=== PATIENT | male | born 1940 | race Caucasian/White ===

== ENCOUNTER → 2017-03-18 | Outpatient (CLI) | payer OTHER | LOC: FIMAGING 11:03 | PROVIDERS: ATTEND Internal Medicine Critical Care Medicine | DX: J44.9 Chronic obstructive pulmonary disease, unspecified (principal); I51.7 Cardiomegaly; J42 Unspecified chronic bronchitis; I70.0 Atherosclerosis of aorta ==

== ENCOUNTER → 2017-03-24 | Outpatient (CLI) | payer OTHER | LOC: BHFA 09:30 | PROVIDERS: ATTEND Internal Medicine | DX: R07.9 Chest pain, unspecified (principal); I25.10 Atherosclerotic heart disease of native coronary artery without angina pectoris | CPT/HCPCS: 78452; 93017; 93306; 93880; A9500; J2785 ==

== ENCOUNTER 2017-03-27 07:26 | Day surgery (SDC) | payer OTHER ==
[2017-03-27] MEDS ORDERED: NS 1,000 ML IV ONE (07:28)
[2017-03-27] MEDS ORDERED: FAMOTIDINE 20 MG TAB PO ONE (07:28)
[2017-03-27] MEDS ORDERED: ASPIRIN EC 325 MG TAB PO ONE (07:28)
[2017-03-27] MEDS ORDERED: DIAZEPAM 5 MG TAB PO ONE (07:28)
--- NOTE | 2017-03-27 07:55 | CPEKG ---
Heart Rate: 51 RR Interval: 1176 P-R Interval: 184 QRSD Interval: 88 QT Interval: 444 QTC Interval: 409 P Prim: 18 QRS Prim: 72 T Wave Prim: 51 EKG Severity - ABNORMAL ECG - EKG Impression: SINUS RHYTHM EKG Impression: BORDERLINE INFERIOR Q WAVES Electronically Signed By: Jonathan Partida 30-Mar-2017 10:32:44
[2017-03-27 08:07] LABS: PLATELET COUNT 185 10^3/uL (150-400)
[2017-03-27 08:17] LABS: INR 1.04 (0.83-1.16); PROTIME(PATIENT) 13.8 SEC (12.0-15.0)
[2017-03-27] MEDS ORDERED: LIDOCAINE 1% 300 MG/30 ML SDV ONE (08:28)
[2017-03-27] MEDS ORDERED: MIDAZOLAM 2 MG/2 ML VIAL ONE (08:28)
[2017-03-27] MEDS ORDERED: fentaNYL 100 MCG/2 ML INJ ONE (08:28)
[2017-03-27] MEDS ORDERED: IOPAMIDOL (ISOVUE-370) 150 ML BTL IV ONE ×2 (08:29→09:57)
[2017-03-27] MEDS ORDERED: CLOPIDOGREL BISULFATE 75 MG TAB ONE (09:19)
[2017-03-27] MEDS ORDERED: ATROPINE SULFATE 1 MG/10 ML SYR ONE (09:41)
--- NOTE | 2017-03-27 10:26 | PDHPUP ---
History & Physical Update H&P update statement: This history and physical update is based on an assessment of the patient which was completed after admission or registration (within 24 hours), but prior to the surgery/procedure. H&P update: H&P reviewed & patient examined, no change in patient's condition since H&P completed
[2017-03-27] MEDS ORDERED: ATROPINE SULFATE 1 MG/10 ML SYR IVP PRN (10:27)
[2017-03-27] MEDS ORDERED: OXYCODONE/APAP 5/325 TAB PO PRN (10:27)
[2017-03-27] MEDS ORDERED: ONDANSETRON 4 MG/2 ML VIAL IVP PRN (10:27)
[2017-03-27] MEDS ORDERED: HYDROCODONE/APAP 5/325 TAB PO PRN (10:27)
[2017-03-27] MEDS ORDERED: NITROGLYCERIN 0.4 MG BTL SL PRN (10:27)
--- NOTE | 2017-03-27 10:27 | PDPROPOC ---
Sedation Plan of Care Sedation Plan of Care: mental status noted, patient educated of risks, benefits , alternatives, patient can tolerate sedation ASA Classification: ASA 2 Planned drugs: fentanyl, midazolam Mallampati Score: Class 2 Mallampati Reference Image: Patient passed 3-3-2 rule?: Yes
[2017-03-27] MEDS ORDERED: IPRATROPIUM BROMIDE 0.5 MG/2.5 ML DEYVIAL IH PRN (10:28)
[2017-03-27] MEDS ORDERED: ALBUTEROL 3 ML DEYVIAL IH PRN (10:28)
[2017-03-27] MEDS ORDERED: TACROLIMUS TP PRN (10:28)
[2017-03-27] MEDS ORDERED: Herbals/Supplements -Info Only PO SCH (10:30)
[2017-03-27] MEDS ORDERED: azaTHIOprine 50 MG TAB PO SCH (12:00)
[2017-03-27] MEDS ORDERED: FUROSEMIDE 40 MG TAB PO SCH (12:00)
[2017-03-27] MEDS ORDERED: GABAPENTIN 400 MG CAP PO SCH (13:00)
[2017-03-27] MEDS ORDERED: BALSALAZIDE DISODIUM 750 MG CAP PO SCH (13:00)
--- NOTE | 2017-03-27 16:42 | CPIP ---
[f rep st] INVASIVE CARDIAC PROCEDURE DATE OF PROCEDURE: 03/27/2017 INDICATIONS FOR PROCEDURE: Positive stress test. PROCEDURE: 1. Nonselective right groin sheathogram. 2. Bilateral selective coronary angiography. 3. Left heart catheterization. 4. Left ventriculogram. 5. Saphenous vein angiography to marginal artery. 6. Saphenous vein angiography to distal right coronary artery. 7. Left internal mammary artery angiography to left anterior descending. HISTORY: Briefly, this is a 76-year-old male with history of prior bypass surgery. The patient had an outpatient stress test which showed inferior wall defect. The patient is scheduled to [place] [facility]. Given these findings, patient consented for cardiac catheterization to deline ate his underlying coronary anatomy. DESCRIPTION OF PROCEDURE: After informed consent, [facility]in was prepped and draped in sterile fashion. Using lidocaine, a short 6-German she ath was placed in the right femoral artery verified angiographically. Through the 6-German sheath, a JL4 catheter was advanced to the left coronary artery. Images of the left coronary artery revealed normal left main. The left circumflex had a 90% lesion in the proximal aspect and was occluded dista lly after the takeoff of the AV groove circ. There seemed to be collateral filling of a marginal art josue distally, most likely from a bypass graft. The LAD was a long vessel which gave off a medium siz e diagonal artery that has been divided. The diagonal artery had 40% to 50% ostial disease. The LAD appeared to be 100% occluded after the takeoff of the diagonal artery and had competitive flow dista lly, mostly from a graft. After images were obtained, the JL4 catheter was removed and a JR4 cathete r was then advanced to the right coronary artery. Images of the right coronary artery revealed 100% occluded proximal RCA. The catheter was then pulled back to the 1st bypass graft which was a widely patent saphenous vein graft which was anastomosed into what appeared to be a marginal artery, with wh at appeared to have, with again a jump to a distal marginal artery which had collateralization to wha t appeared to be a diagonal artery versus a distal marginal artery. After these images were obtained , the catheter was then pulled back and placed into the left subclavian artery, switched out for a LI MA catheter. Angiography of the left internal mammary artery showed widely patent HARRISON though small, anastomosing into the distal LAD. Of note, there were multiple collaterals coming off the HARRISON whic h most likely indicated why this vessel was of smaller caliber. However, the distal LAD appeared to be patent and free of disease. The HARRISON catheter was then removed, and the multipurpose catheter was then advanced to the 3rd bypass graft which was a widely patent saphenous vein graft anastomosing in to the distal RCA. This showed a widely patent RPDA and RPL left with no significant disease. Of no te, this did retrograde fill into the proximal RCA which had a high-grade 78% disease proximally. Th e catheter was then removed. Pigtail catheter was then advanced in the left ventricle. LVEDP is 20 mmHg. Left ventriculogram in the SAN projection showed EF of 55% with no wall motion abnormalities. There was mild to moderate LVH noted. There was no pull-back gradient between the LV and the aorta. Pigtail catheter was removed. 0.035 wire right groin was sutured in place. The patient tolerated procedure well. No complications. IMPRESSION: 1. Severe [place] coronary artery disease. 2. Patent 3/3 bypass grafts, with a patent saphenous vein graft to marginal artery with what appears to be a collateral formation to the distal marginal 3 artery. 3. Patent saphenous vein graft to distal right coronary artery. 4. Patent left internal mammary artery to left anterior descending , which does appear to be of smal l caliber and most likely secondary to multiple collaterals coming off the left internal mammary. 5. Normal ejection fraction with mild to moderate left ventricular hypertrophy. PLAN: The patient will have the sheath discontinued [facility] He will have 3 hours bed r est. He is cleared from a cardiovascular perspective to undergo orthopedic surgery. /[id number]/MODL
[2017-03-27] MEDS ORDERED: PANTOPRAZOLE SODIUM 40 MG TAB PO SCH (18:00)
[2017-03-27] MEDS ORDERED: NON-FORMULARY NEW DRUG (Simvastatin [Zocor] 20 MG) PO SCH (21:00)
[2017-03-27] MEDS ORDERED: DULoxetine 20 MG CAP PO SCH (21:00)
[2017-03-27] MEDS ORDERED: NON-FORMULARY NEW DRUG (Mirtazapine [Remeron] 15 MG) PO SCH (21:00)
[2017-03-27] MEDS ORDERED: METOPROLOL TARTRATE 25 MG TAB PO SCH (21:00)
[2017-03-28] MEDS ORDERED: CHOLECALCIFEROL VIT D3 1,000 UNITS TAB PO SCH (09:00)
[2017-03-28] MEDS ORDERED: VITAMIN B COMPLEX 1 EA CAP/TAB PO SCH (09:00)
[2017-03-28] MEDS ORDERED: CLOPIDOGREL BISULFATE 75 MG TAB PO SCH (09:00)
[2017-03-28] MEDS ORDERED: MULTIVITAMINS 1 EACH TAB PO SCH (09:00)
[2017-03-28] MEDS ORDERED: ASPIRIN 325 MG TAB PO SCH (09:00)
[2017-03-28] MEDS ORDERED: CETIRIZINE 10 MG TAB PO SCH (09:00)
[2017-03-28] MEDS ORDERED: LOSARTAN POTASSIUM 50 MG TAB PO SCH (09:00)
[2017-03-28] MEDS ORDERED: FOLIC ACID 1 MG TAB PO SCH (09:00)
[2017-03-28] MEDS ORDERED: POTASSIUM CL 20 MEQ TAB PO SCH (09:00)
[2017-03-28] MEDS ORDERED: FERROUS SULFATE 325 MG TAB PO SCH (09:00)
[2017-03-30] MEDS ORDERED: ALENDRONATE SODIUM 70 MG TAB PO SCH (07:00)
== END 2017-03-27 14:09 | disposition home or self-care (01) ==
LOC: FCATH 07:26
PROVIDERS: ATTEND Internal Medicine Cardiovascular Disease
PROC: 4A023N7 Measurement of Cardiac Sampling and Pressure, Left Heart, Percutaneous Approach (ICD-10-PCS; principal; 2017-03-27)
PROC: B2151ZZ Fluoroscopy of Left Heart using Low Osmolar Contrast (ICD-10-PCS; principal; 2017-03-27)
PROC: B2131ZZ Fluoroscopy of Multiple Coronary Artery Bypass Grafts using Low Osmolar Contrast (ICD-10-PCS; principal; 2017-03-27)
DX: Z01.810 Encounter for preprocedural cardiovascular examination (principal); I25.10 Atherosclerotic heart disease of native coronary artery without angina pectoris; I50.9 Heart failure, unspecified; I25.2 Old myocardial infarction; J44.9 Chronic obstructive pulmonary disease, unspecified; I11.0 Hypertensive heart disease with heart failure; E78.2 Mixed hyperlipidemia; R09.89 Other specified symptoms and signs involving the circulatory and respiratory systems; Z79.82 Long term (current) use of aspirin; Z87.891 Personal history of nicotine dependence; Z95.1 Presence of aortocoronary bypass graft
CPT/HCPCS: J0461; J1644; J2250; J3010; Q9967